=== PATIENT | female | born 1950 | race African-American/Black ===

== ENCOUNTER → 2020-08-04 | Day surgery (SDC) | payer MEDICARE, MEDICAID ==
[~2020-08-04] MED LIST: LIDOCAINE HCL/EPINEPHRINE 1%-EPI 1:100,000 20 ML VIAL ONE; SODIUM BICARBONATE 4% (2.4MEQ) 5ML VIAL IV ONE
== END | disposition home or self-care (01) ==
LOC: RAD 09:06
PROVIDERS: ATTEND Surgery
DX: N63.21 Unspecified lump in the left breast, upper outer quadrant (principal); C50.912 Malignant neoplasm of unspecified site of left female breast; Z79.899 Other long term (current) drug therapy
CPT/HCPCS: 19083; 88305; J3490